=== PATIENT | female | born 1960 | race Caucasian/White ===

== ENCOUNTER 2022-04-21 12:14 | Outpatient (CLI) | payer BC ==
[~2022-04-21 12:14] MED LIST: Magnevist 469MG/ML 20 ML VIAL ONE
== END 2022-04-21 12:15 | disposition home or self-care (01) ==
LOC: CSHMRI 12:14
PROVIDERS: ATTEND Psychiatry & Neurology Neurology
DX: G35 Multiple sclerosis (principal); M47.812 Spondylosis without myelopathy or radiculopathy, cervical region; M47.814 Spondylosis without myelopathy or radiculopathy, thoracic region
CPT/HCPCS: 70553; 72156; 72157